=== PATIENT | female | born 1995 | race Caucasian/White ===

== ENCOUNTER 2016-08-01 11:37 | Emergency (ER) | payer SELFPAY ==
[2016-08-01 13:02] LABS: ABSOLUTE LYMPHOCYTES (AUTO) 2.4 10^3/uL (0.5-4.7); ABSOLUTE MONOCYTES (AUTO) 0.6 10^3/uL (0.1-1.4); ABSOLUTE NEUT (AUTO) 6.4 10^3/uL (1.7-8.2); BASOPHILS % (AUTO) 0.1 % (0-2); EOSINOPHILS % (AUTO) 0.1 % (0-6); HEMATOCRIT 37.6 % (36.0-47.0); HGB HCT DIFFERENCE 1.4; LYMPHOCYTES % (AUTO) 25.4 % (13-45); MEAN CORPUSCULAR HEMOGLOBIN 28.3 pg (27.0-33.4); MEAN CORPUSCULAR HGB CONC 34.6 g/dL (32.0-36.0); MEAN CORPUSCULAR VOLUME 82 fl (80-97); MONOCYTES % (AUTO) 6.1 % (3-13); RED BLOOD COUNT 4.59 10^6/uL (3.72-5.28); SEGMENTED NEUTROPHILS % (AUTO) 68.3 % (42-78); WHITE BLOOD COUNT 9.3 10^3/uL (4.0-10.5)
[2016-08-01 13:20] LABS: ALANINE AMINOTRANSFERASE 29 U/L (9-52); ALBUMIN 4.4 g/dL (3.5-5.0); ALCOHOL 80 mg/dL (NONE DETECTED); ALKALINE PHOSPHATASE 59 U/L (38-126); ANION GAP 12 (5-19); ASPARTATE AMINO TRANSFERASE 27 U/L (14-36); BILIRUBIN,TOTAL 0.5 mg/dL (0.2-1.3); BLOOD UREA NITROGEN 9 mg/dL (7-20); CALCIUM 9.2 mg/dL (8.4-10.2); CARBON DIOXIDE 27 mmol/L (22-30); CHLORIDE 106 mmol/L (98-107); CREATININE RESULT 0.81 mg/dL (0.52-1.25); GLUCOSE 90 mg/dL (75-110); SODIUM 144.5 mmol/L (137-145); TOTAL PROTEIN 7.2 g/dL (6.3-8.2)
[2016-08-01 13:23] LABS: APPEARANCE,URINE SLIGHTLY-CLOUDY; BILIRUBIN,URINE NEGATIVE (NEGATIVE); GLUCOSE, URINE NEGATIVE (NEGATIVE); KETONES,URINE NEGATIVE (NEGATIVE); LEUKOCYTE ESTERASE,URINE NEGATIVE (NEGATIVE); NITRITE,URINE NEGATIVE (NEGATIVE); PROTEIN,URINE 30 mg/dL (NEGATIVE); URINE SPECIFIC GRAVITY 1.019; UROBILINOGEN,URINE NEGATIVE mg/dL (<2.0)
--- NOTE | 2016-08-01 14:07 | ER Document Report ---
ED General - General TRAVEL OUTSIDE OF THE [place] IN LAST 30 DAYS: No - HPI Patient complains to provider of: suicidal ideation <LONNIE JONES - Last Filed: 08/01/16 14:04> <MARIAH KNOX - Last Filed: 08/01/16 16:37> - General Chief Complaint: Suicidal Ideation Stated Complaint: SUICIDAL IDEATION - HPI Notes: Patient coming in for suicidal ideation evaluation that has been ongoing for the last 48 hours. Patient states had a miscarriage one week ago states since that time has been depressed drinking more. Patient states that she has had thoughts about shooting herself with a gun. Patient states she does not have any access to weapons. Patient states she was trying to go and visit her ex- boyfriend or in [place]. Patient states that she did drink a little last night however prior to that last drink was 3 days ago. Denies ever going through any alcohol withdrawals. Patient also states no previous history of suicidal thoughts or psychiatric admissions. Denies any other medical problems denies any abdominal pain denies any vaginal bleeding at this time. (LONNIE JONES) - Related Data Allergies/Adverse Reactions: Penicillins Allergy (Verified 08/01/16 11:52) Home Medications: Current Home Medications No Home Medications 08/01/16 [History] Past Medical History - Social History Smoking Status: Current Every Day Smoker Chew tobacco use (# tins/day): No Frequency of alcohol use: Heavy Drug Abuse: None Family History: Reviewed & Not Pertinent Patient has suicidal ideation: Yes Patient has homicidal ideation: No Psychiatric Medical History: Reports: Hx Bipolar Disorder, Hx Depression Surgical Hx: Negative - Immunizations Hx Diphtheria, Pertussis, Tetanus Vaccination: Yes <LONNIE JONES - Last Filed: 08/01/16 14:04> Review of Systems - Review of Systems Constitutional: No symptoms reported EENT: No symptoms reported Cardiovascular: No symptoms reported Respiratory: No symptoms reported Gastrointestinal: No symptoms reported Genitourinary: No symptoms reported Female Genitourinary: No symptoms reported Musculoskeletal: No symptoms reported Skin: No symptoms reported Hematologic/Lymphatic: No symptoms reported Neurological/Psychological: Suicidal ideation -: Yes All other systems reviewed and negative <LONNIE JONES - Last Filed: 08/01/16 14:04> Physical Exam - Vital signs Interpretation: Normal - General General appearance: Appears well, Alert - HEENT Head: Normocephalic, Atraumatic Eyes: Normal Pupils: PERRL - Respiratory Respiratory status: No respiratory distress Chest status: Nontender Breath sounds: Normal Chest palpation: Normal - Cardiovascular Rhythm: Regular Heart sounds: Normal auscultation Murmur: No - Abdominal Inspection: Normal Distension: No distension Bowel sounds: Normal Tenderness: Nontender Organomegaly: No organomegaly - Back Back: Normal, Nontender - Extremities General upper extremity: Normal inspection, Nontender, Normal color, Normal ROM , Normal temperature General lower extremity: Normal inspection, Nontender, Normal color, Normal ROM , Normal temperature, Normal weight bearing. No: Yonas's sign - Neurological Neuro grossly intact: Yes Cognition: Normal Orientation: AAOx4 Yung Coma Scale Eye Opening: Spontaneous [place] Coma Scale Verbal: Oriented [place] Coma Scale Motor: Obeys Commands [place] Coma Scale Total: 15 Speech: Normal Motor strength normal: LUE, RUE, LLE, RLE Sensory: Normal - Psychological Associated symptoms: Depressed, Flat affect - Skin Skin Temperature: Warm Skin Moisture: Dry Skin Color: Normal <LONNIE JONES - Last Filed: 08/01/16 14:04> Course - Laboratory Result Diagrams: 08/01/16 12:45 08/01/16 12:45 <LONNIE JONES - Last Filed: 08/01/16 14:04> - Laboratory Result Diagrams: 08/01/16 12:45 08/01/16 12:45 <MARIAH KNOX - Last Filed: 08/01/16 16:37> - Re-evaluation Re-evalutation: 08/01/16 14:07 Patient's lab work shows no critical etiology. Patient will be referred to our mental health team for further evaluation. (LONNIE JONES) 08/01/16 16:35 Dr. Fairchild has cleared patient for follow-up as outpatient at [facility]. Her friend will drive her to the clinic today. Patient has contracted for safety and will return if she has any further thoughts of harming herself. (MARIAH KNOX) - Vital Signs Vital signs: Temp Pulse Resp BP Pulse Ox 98.9 F 116 H 16 136/86 H 97 08/01/16 11:48 08/01/16 11:48 08/01/16 11:48 08/01/16 11:48 08/01/16 11:48 (LONNIE JONES) (MARIAH KNOX) - Laboratory Laboratory results interpreted by me: 08/01/16 08/01/16 08/01/16 12:28 12:45 12:45 RDW 15.0 H Beta HCG, Quant Urine Protein 30 H Salicylates < 1.0 L Acetaminophen < 10 L 08/01/16 12:45 RDW Beta HCG, Quant 53.56 H Urine Protein Salicylates Acetaminophen (LONNIE JONES) (MARIAH KNOX) Discharge <LONNIE JONES - Last Filed: 08/01/16 14:04> <MARIAH KNOX - Last Filed: 08/01/16 16:37> - Discharge Clinical Impression: Suicidal ideation, Alcohol use Condition: Stable Disposition: HOME, SELF-CARE Additional Instructions: DEPRESSION: Your evaluation reveals that you have mental depression. While symptoms may be vague, they often include disturbance of sleep, fatigue, loss of appetite , and general loss of interest in life. While depression may be a side effect of drugs, or a reaction to a major change in your life, many cases have no known cause. If depression is acute, and related to a major loss in your life, you can expect it to clear completely with time. If you have been depressed a long time , are prone to repeated bouts of depression or low mood, or have been thinking of suicide, get help. Depression can be treated with anti-depressant medication and counselling. Long-term depression will often take a few weeks to clear, even with appropriate medication. Follow-up care is important. SUICIDAL IDEATION: Suicidal ideation is a common medical term for thoughts about suicide, which may be as detailed as a formulated plan, without the suicidal act itself. Although most people who undergo suicidal ideation do not commit suicide, some go on to make suicide attempts. The range of suicidal ideation varies greatly from fleeting to detailed planning, role playing, and unsuccessful attempts. While thoughts about suicide are common, most people do not carry out serious actions to commit suicide. Based upon your evaluation and discussion with you, we do not believe you are currently at risk to act upon your thoughts of suicide. You have agreed to return to the Emergency Department, at any time , if you feel inclined to act upon your suicidal thoughts. FOLLOW-UP CARE: If you have been referred to a physician for follow-up care, call the physician s office for an appointment as you were instructed or within the next two days. If you experience worsening or a significant change in your symptoms, notify the physician immediately or return to the Emergency Department at any time for re-evaluation.
--- NOTE | 2016-08-01 14:57 | PSYCHOLOGICAL NOTE ---
Psych Note - Psych Note Psych Note: Patient presented to [facility] ED for suicidal ideation evaluation that has been ongoing for the last 48 hours. Patient states had a miscarriage one week ago states since that time has been depressed drinking more. Patient states that she has had thoughts about shooting herself with a gun. Patient states she does not have any access to weapons. Patient states she was trying to go and visit her ex-boyfriend or in [place]. Patient states that she did drink a little last night however prior to that last drink was 3 days ago. Patient states that she was talking to her ex- when the licensing director showed up. She continued to need to state that she had been drinking and partying a lot in attempt to try to forget that she miscarried last week. She states that she was 13 weeks along with a little girl. She continued to state that she's been drinking and saying crazy things to a lot of people and getting them angry; "I told my fianc still love my ex-." She continued to disclose that her ex - was charged with family child abuse here in [place] and that her son lives with her parents who have legal guardianship. She states it is now civil matter because she is trying to get custody back. She continued to state that her relationship with her parents is not good. Patient discussed her drinking again saying"I said a lot of crazy things got kicked out of a republican last night." Patient states she needs to get away from [place] and go to [place] where her grandmother lives. She states her grandmother wants her to stay with her. Patient states that she did have suicidal ideation with a plan of shooting herself however she had no access to weapons. Patient states she's been diagnosed with anxiety depression and bipolar through [facility] however has not attended services for about a year. She states that she was prescribed medication however she never took them. Clinician spoke to patient's grandmother, Sonal [phone], she states that there is nothing she can do to help her her granddaughter. She states it's all starts with her parents because the patient has made some bad decisions. She continued to state the patient has trouble telling the truth and feels that she needs "i in depth counseling in a inpatient treatment facility." Sonal continued to state that the patient is sensible but doesn't make the right choices, destroys relationships,, and while she can obtain employment she is unable to stay employed. She states that she suffers from a lot of depression shown through withdrawal from others and cries a lot. Sonal believes that the patient is a danger to herself. She continued to state that she does not believe she could be a safety resource for her granddaughter because her is 80 years old and she is unsure should be able to devote all the time necessary. Sonal disclosed that she never said the patient could live with her, but she will always support her emotionally. Clinician attempted phone call to Moise durand [phone], no voicemail set up unable to leave message. Patient is alert and oriented to person place time and circumstance. Mood is euthymic with congruent affect. Patient states she has been suicidal for the last 48 hours and had a plan however she did not have access to a gun. Patient denies homicidal ideation. Patient denies auditory and visual hallucinations; no delusions are noted. Thought processes logical, disorganized and linear; however, it is noted that patient had difficulty with truthfulness. Conversational speech was within normal rate, tone, porosity. Eye contact was well maintained. Intellectual abilities appear to be within normal range. Attention and concentration are good. Insight, judgment, impulse control appear to be fair. Impression\\plan: Clinician notes patient was fluent in communicating in false information. Patient stated her grandmother wanted her to come and live with her in [place] however this was denied by the grandmother. Patient stated that she knew the sex of her child lost in miscarriage the week previous; however, it was noted she was only 13 weeks at the time of stated miscarriage. Patient also disclosed process of custody of her son being with her parents going through child protective services, this clinician has extended knowledge of child protective services and notes if the grandparents were given legal guardianship through DSS Court as stated by patient, there was extenuating circumstances that involved the patient not just her . At this time patient is disclosing heightened symptoms however plan included a gun where she had no means to obtain. It is noted the patient obtain services through cc and see approximately one year ago however failed to continue services and states she never took the medication prescribed to her. With these facts it is believed the patient is here for secondary gain; patient is psychiatrically cleared for discharge.
[2016-08-01 16:44] VITALS: BP 124/86
--- NOTE | 2016-08-02 08:25 | EKG REPORT ---
SEVERITY:- OTHERWISE NORMAL ECG - SINUS TACHYCARDIA : Confirmed by: Abida Childress 02-Aug-2016 08:24:44
[2016-08-04 14:29] LABS: URINE BARBITURATES SCREEN NEGATIVE; URINE METHADONE SCREEN NEGATIVE; URINE PHENCYCLIDINE SCREEN NEGATIVE
== END 2016-08-01 16:44 | disposition home or self-care (01) ==
LOC: ER 11:37
DX: R45.851 Suicidal ideations (principal); F32.9 Major depressive disorder, single episode, unspecified; Z72.89 Other problems related to lifestyle; F17.200 Nicotine dependence, unspecified, uncomplicated; Z88.0 Allergy status to penicillin
CPT/HCPCS: 36415; 80053; 80307; 81001; 84702; 85025; 93005; 93010; 99285

== ENCOUNTER 2016-10-29 07:52 | Emergency (ER) | payer SELFPAY ==
[2016-10-29] MEDS ORDERED: ACETAMINOPHEN 325 MG TABLET PO ONE (09:22)
[2016-10-29 10:14] LABS: ABSOLUTE LYMPHOCYTES (AUTO) 1.3 10^3/uL (0.5-4.7); ABSOLUTE MONOCYTES (AUTO) 0.9 10^3/uL (0.1-1.4); ABSOLUTE NEUT (AUTO) 14.7 10^3/uL (1.7-8.2); BASOPHILS % (AUTO) 0.2 % (0-2); EOSINOPHILS % (AUTO) 0.1 % (0-6); HEMOGLOBIN 12.1 g/dL (12.0-15.5); HGB HCT DIFFERENCE 0.3; LYMPHOCYTES % (AUTO) 7.4 % (13-45); MEAN CORPUSCULAR HEMOGLOBIN 26.7 pg (27.0-33.4); MEAN CORPUSCULAR HGB CONC 33.5 g/dL (32.0-36.0); MEAN CORPUSCULAR VOLUME 80 fl (80-97); MONOCYTES % (AUTO) 5.5 % (3-13); RED BLOOD COUNT 4.52 10^6/uL (3.72-5.28); SEGMENTED NEUTROPHILS % (AUTO) 86.8 % (42-78)
[2016-10-29] MEDS ORDERED: NORMAL SALINE 1000 ML 1,000 ML IV ONE (10:25)
[2016-10-29 10:32] LABS: ALANINE AMINOTRANSFERASE 16 U/L (9-52); ALBUMIN 4.1 g/dL (3.5-5.0); ALKALINE PHOSPHATASE 79 U/L (38-126); ANION GAP 14 (5-19); ASPARTATE AMINO TRANSFERASE 15 U/L (14-36); BILIRUBIN,DIRECT 0.2 mg/dL (0.0-0.4); BILIRUBIN,TOTAL 0.7 mg/dL (0.2-1.3); BLOOD UREA NITROGEN 10 mg/dL (7-20); CALCIUM 9.5 mg/dL (8.4-10.2); CARBON DIOXIDE 22 mmol/L (22-30); CHLORIDE 101 mmol/L (98-107); CREATININE RESULT 0.76 mg/dL (0.52-1.25); GLUCOSE 88 mg/dL (75-110); LIPASE 50.2 U/L (23-300); POTASSIUM 4.1 mmol/L (3.6-5.0); SODIUM 137.3 mmol/L (137-145); TOTAL PROTEIN 7.4 g/dL (6.3-8.2)
[2016-10-29] MEDS ORDERED: METOCLOPRAMIDE HCL INJ/PF 10 MG/2 ML SDV IV ONE (10:49)
--- NOTE | 2016-10-29 10:49 | ER Document Report ---
ED General - General Chief Complaint: Flu Symptoms Stated Complaint: ABDOMINAL PAIN Mode of Arrival: Ambulatory Information source: Patient Notes: 20-year-old female who noted that she was 2 weeks ago presents with complaints of suprapubic pain with vaginal bleeding. Patient denies any fevers or chills admits to nausea TRAVEL OUTSIDE OF THE [place] IN LAST 30 DAYS: No - HPI Onset: Just prior to arrival Onset/Duration: Sudden Quality of pain: Sharp Severity: Moderate Pain Level: 2 Associated symptoms: Other Exacerbated by: Denies Relieved by: Denies Similar symptoms previously: No Recently seen / treated by doctor: No - Related Data Allergies/Adverse Reactions: Penicillins Allergy (Verified 10/29/16 08:10) Past Medical History - Social History Smoking Status: Never Smoker Cigarette use (# per day): No Chew tobacco use (# tins/day): No Smoking Education Provided: No Frequency of alcohol use: None Drug Abuse: None Family History: Reviewed & Not Pertinent Patient has suicidal ideation: No Patient has homicidal ideation: No Renal/ Medical History: Denies: Hx Peritoneal Dialysis Psychiatric Medical History: Reports: Hx Bipolar Disorder, Hx Depression - Immunizations Hx Diphtheria, Pertussis, Tetanus Vaccination: Yes Review of Systems - Review of Systems Notes: REVIEW OF SYSTEMS: CONSTITUTIONAL : Denies fever, chills, or sweats. Denies recent illness. EENT: Denies eye, ear, throat, or mouth pain or symptoms. Denies nasal or sinus congestion or discharge. Denies throat, tongue, or mouth swelling or difficulty swallowing. CARDIOVASCULAR: Denies chest pain. Denies palpitations or racing or irregular heart beat. Denies ankle edema. RESPIRATORY: Denies cough, cold, or chest congestion. Denies shortness of breath, difficulty breathing, or wheezing. GASTROINTESTINAL: Denies abdominal pain or distention. Denies nausea, vomiting , or diarrhea. Denies blood in vomitus, stools, or per rectum. Denies black, tarry stools. Denies constipation. GENITOURINARY: Denies difficulty urinating, painful urination, burning, frequency, blood in urine, or discharge. FEMALE GENITOURINARY: Admits to vaginal bleeding pelvic pain MUSCULOSKELETAL: Denies back or neck pain or stiffness. Denies joint pain or swelling. SKIN: Denies rash, lesions or sores. HEMATOLOGIC : Denies easy bruising or bleeding. LYMPHATIC: Denies swollen, enlarged glands. NEUROLOGICAL: Denies confusion or altered mental status. Denies passing out or loss of consciousness. Denies dizziness or lightheadedness. Denies headache. Denies weakness or paralysis or loss of use of either side. Denies problems with gait or speech. Denies sensory loss, numbness, or tingling. Denies seizures. PSYCHIATRIC: Denies anxiety or stress. Denies depression, suicidal ideation, or homicidal ideation. ALL OTHER SYSTEMS REVIEWED AND NEGATIVE. Dictation was performed using [employer] voice recognition software PHYSICAL EXAMINATION: GENERAL: Well-appearing, well-nourished and in no acute distress. HEAD: Atraumatic, normocephalic. EYES: Pupils equal round and reactive to light, extraocular movements intact, conjunctiva are normal. ENT: Nares patent, oropharynx clear without exudates. Moist mucous membranes. NECK: Normal range of motion, supple without lymphadenopathy LUNGS: Breath sounds clear to auscultation bilaterally and equal. No wheezes rales or rhonchi. HEART: Regular rate and rhythm without murmurs ABDOMEN: Soft, nontender, nondistended abdomen. No guarding, no rebound. No masses appreciated. Female : deferred Musculoskeletal: Normal range of motion, no pitting or edema. No cyanosis. NEUROLOGICAL: Cranial nerves grossly intact. Normal speech, normal gait. Normal sensory, motor exams PSYCH: Normal mood, normal affect. SKIN: Warm, Dry, normal turgor, no rashes or lesions noted. Physical Exam - Vital signs Vitals: Temp Pulse Resp BP Pulse Ox 98.9 F 114 H 19 126/63 H 100 10/29/16 08:10 10/29/16 08:10 10/29/16 08:10 10/29/16 08:10 10/29/16 08:10 Course - Re-evaluation Re-evalutation: 10/29/16 10:52 Patient emergently order lab work, I'm concerned about ectopic 10/29/16 11:45 HCG is 28,000 US noted ot IUP or EUP 10/29/16 12:[address] Grant, she evaluated images, believes that it is a miscarriage. My concerns for ectopic . She offered the patient admission versus follow-up in the office, patient would rather follow up in the office. Given that she is stable at this time I will discharge her with understanding that she return immediately if there any other concerns After performing a Medical Screening Examination, I estimate there is LOW risk for ACUTE APPENDICITIS, BOWEL OBSTRUCTION, ACUTE CHOLECYSTITIS, PERFORATED DIVERTICULITIS, INCARCERATED HERNIA, PANCREATITIS, PELVIC INFLAMMATORY DISEASE, PERFORATED ULCER, ECTOPIC , or TUBO-OVARIAN ABSCESS, thus I consider the discharge disposition reasonable. Also, there is no evidence or peritonitis , sepsis, or toxicity. The patient and I have discussed the diagnosis and risks , and we agree with discharging home with close follow-up with the understanding that symptoms and presentations can change. We also discussed returning to the Emergency Department immediately if new or worsening symptoms occur. We have discussed the symptoms which are most concerning (e.g., bloody stool, fever, changing or worsening pain, vomiting) that necessitate immediate return. - Vital Signs Vital signs: Temp Pulse Resp BP Pulse Ox 98.9 F 114 H 19 126/63 H 100 10/29/16 08:10 10/29/16 08:10 10/29/16 08:10 10/29/16 08:10 10/29/16 08:10 - Laboratory Result Diagrams: 10/29/16 09:54 10/29/16 09:54 Laboratory results interpreted by me: 10/29/16 10/29/16 09:54 09:54 WBC 17.0 H MCH 26.7 L RDW 15.0 H Seg Neutrophils % 86.8 H Lymphocytes % 7.4 L Absolute Neutrophils 14.7 H Beta HCG, Quant 71048.00 H - Diagnostic Test Radiology reviewed: Image reviewed, Reports reviewed Discharge - Discharge Clinical Impression: Miscarriage Abdominal pain Qualifiers: Abdominal location: lower abdomen, unspecified Qualified Code(s): R10.30 - Lower abdominal pain, unspecified Condition: Stable Disposition: HOME, SELF-CARE Additional Instructions: Miscarriage You have had a miscarriage (medically called a "spontaneous "). The miscarriage occurred because the fetus did not develop normally. There is nothing you did to cause it, and nothing you could have done to prevent it. About one in four ends in miscarriage. You should rest in bed for two or three days. As there is some risk of infection of the uterus, you should not have intercourse for one week (or until okayed by your physician). You might not have a period for six to eight weeks. You should not become again for at least three months -- the uterus requires time to get back to normal. Call the doctor or return for re-examination if there is heavy or persistent vaginal bleeding, fever, foul discharge, continued cramping pains, or abdominal pain. You must return immediately if there are any other concerns Prescriptions: Oxycodone HCl/Acetaminophen [Percocet 5-325 mg Tablet] 1 - 2 tab PO Q4H PRN #15 tablet PRN Reason: Referrals: ANDREINA YANG MD [ACTIVE STAFF] - 11/02/16
[2016-10-29] MEDS ORDERED: MORPHINE SULFATE 10 MG/ML INJ IV ONE (12:16)
[2016-10-29 13:05] VITALS: BP 105/64
== END 2016-10-29 13:18 | disposition home or self-care (01) ==
LOC: ER 07:52
DX: O03.9 Complete or unspecified spontaneous abortion without complication (principal); Z88.0 Allergy status to penicillin
CPT/HCPCS: 99284; 96374; 36415; 84702; 83690; 85025; 80053; 76817; J2765; J7030

== ENCOUNTER 2017-08-19 02:56 | Emergency (ER) | payer OTHER ==
[2017-08-19] MEDS ORDERED: KETOROLAC TROMETHAMINE INJ/PF 30 MG/1 ML SDV IV ONE (04:57)
[2017-08-19] MEDS ORDERED: NORMAL SALINE 1000 ML 1,000 ML IV ONE ×2 (04:57→06:59)
[2017-08-19] MEDS ORDERED: ONDANSETRON HCL INJ/PF 4 MG/2 ML SDV IV ONE (04:57)
--- NOTE | 2017-08-19 04:59 | ER Document Report ---
ED General - General Chief Complaint: Arm Pain Stated Complaint: VOMITING Time Seen by Provider: 08/19/17 04:28 Notes: Patient is a 21-year-old female who comes emergency department for chief complaint of 2 days of diarrhea, she states she has developed body aches in her arms and legs, she has generalized abdominal pain. She vomited twice over the past couple of days. She denies hematochezia, recent antibiotics, recent travel , raw food, or any obvious source. She denies dysuria, flank pain, vaginal bleeding or discharge. She states she is not but she does have irregular cycles. She denies any daily medications. She denies any surgeries. TRAVEL OUTSIDE OF THE [place] IN LAST 30 DAYS: No - Related Data Allergies/Adverse Reactions: Penicillins Allergy (Verified 10/29/16 08:10) Past Medical History - General Information source: Patient - Social History Smoking Status: Never Smoker Frequency of alcohol use: None Drug Abuse: None Lives with: Family Family History: Reviewed & Not Pertinent Renal/ Medical History: Denies: Hx Peritoneal Dialysis Psychiatric Medical History: Reports: Hx Bipolar Disorder, Hx Depression Surgical Hx: Negative - Immunizations Hx Diphtheria, Pertussis, Tetanus Vaccination: Yes Review of Systems - Review of Systems Constitutional: See HPI EENT: No symptoms reported Cardiovascular: No symptoms reported Respiratory: No symptoms reported Gastrointestinal: See HPI Genitourinary: No symptoms reported Female Genitourinary: No symptoms reported Musculoskeletal: See HPI Skin: No symptoms reported Hematologic/Lymphatic: No symptoms reported Neurological/Psychological: No symptoms reported Physical Exam - Vital signs Vitals: Temp Pulse BP Pulse Ox 98.6 F 93 113/79 100 08/19/17 03:02 08/19/17 03:02 08/19/17 03:02 08/19/17 03:02 Interpretation: Normal - General General appearance: Appears well, Alert In distress: None - HEENT Head: Normocephalic, Atraumatic Eyes: Normal Conjunctiva: Normal Extraocular movements intact: Yes Eyelashes: Normal Pupils: PERRL Mucous membranes: Dry Pharynx: Normal Neck: Normal - Respiratory Respiratory status: No respiratory distress Chest status: Nontender Breath sounds: Normal Chest palpation: Normal - Cardiovascular Rhythm: Regular. No: Tachycardia Heart sounds: Normal auscultation, S1 appreciated, S2 appreciated Murmur: No - Abdominal Inspection: Normal Distension: No distension Bowel sounds: Normal Tenderness: Nontender - Completely nontender abdomen. No: Tender, Guarding Organomegaly: No organomegaly - Back Back: Normal, Nontender. No: Tender, CVA tenderness - Extremities General upper extremity: Normal inspection, Nontender, Normal ROM, Normal strength General lower extremity: Normal inspection, Nontender, Normal ROM, Normal strength - Neurological Neuro grossly intact: Yes Cognition: Normal Orientation: AAOx4 Yung Coma Scale Eye Opening: Spontaneous Yung Coma Scale Verbal: Oriented Yung Coma Scale Motor: Obeys Commands Yung Coma Scale Total: 15 Speech: Normal Motor strength normal: LUE, RUE, LLE, RLE Sensory: Normal - Psychological Associated symptoms: Normal affect, Normal mood - Skin Skin Temperature: Warm Skin Moisture: Dry Skin Color: Normal Course - Re-evaluation Re-evalutation: Patient with dry mucous membranes but otherwise she is well-appearing on exam. Soft abdomen. Vital signs unremarkable. CBC, chemistry generally unremarkable. Patient states her symptoms have resolved after Zofran, Toradol, IV fluids. Suspect dehydration causing extremity aches. Patient unable to provide stool sample, finally obtained urine, shows elevated specific gravity, 80 ketones, and surprisingly has a positive test. Patient states she is very surprised about this. Giving additional fluids because of obvious dehydration. Giving oral rehydration as well. Double checking with hCG quantitative. - Vital Signs Vital signs: Temp Pulse Resp BP Pulse Ox 97.9 F 65 18 105/60 100 08/19/17 09:01 08/19/17 09:01 08/19/17 09:01 08/19/17 09:01 08/19/17 09:01 - Laboratory Result Diagrams: 08/19/17 05:25 08/19/17 05:25 Laboratory results interpreted by me: 08/19/17 08/19/17 08/19/17 05:25 05:25 05:25 MCH 26.7 L RDW 17.8 H Sodium 136.6 L Beta HCG, Quant 117351.00 H Urine Ketones Urine Blood Urine HCG, Qual 08/19/17 05:55 MCH RDW Sodium Beta HCG, Quant Urine Ketones 80 H Urine Blood SMALL H Urine HCG, Qual POSITIVE H Discharge - Discharge Clinical Impression: Body aches, Nausea vomiting and diarrhea Condition: Stable Disposition: HOME, SELF-CARE Additional Instructions: Your test is positive. Please begin vitamins, follow-up closely with [facility] for additional evaluation and management. We have a stool culture growing in our lab, if anything concerning develops we will call you for treatment. Take Zofran if needed for nausea, drink plenty of fluids, you can take Tylenol for pain. Return for any concerning or worsening symptoms including uncontrolled vomiting , severe abdominal pain, or any other concerning symptoms. Prescriptions: Ondansetron [Zofran Odt 4 mg Tablet] 1 - 2 tab PO Q4H PRN #20 tab.rapdis PRN Reason: For Nausea/Vomiting
[2017-08-19 06:07] LABS: ABSOLUTE MONOCYTES (AUTO) 0.4 10^3/uL (0.1-1.4); ABSOLUTE NEUT (AUTO) 3.7 10^3/uL (1.7-8.2); BASOPHILS % (AUTO) 0.2 % (0-2); EOSINOPHILS % (AUTO) 0.3 % (0-6); HEMATOCRIT 37.3 % (36.0-47.0); HEMOGLOBIN 12.5 g/dL (12.0-15.5); MEAN CORPUSCULAR HEMOGLOBIN 26.7 pg (27.0-33.4); MEAN CORPUSCULAR HGB CONC 33.6 g/dL (32.0-36.0); MEAN CORPUSCULAR VOLUME 80 fl (80-97); MONOCYTES % (AUTO) 7.8 % (3-13); PLATELET COUNT 191 10^3/uL (150-450); RED BLOOD COUNT 4.68 10^6/uL (3.72-5.28); RED CELL DISTRIBUTION WIDTH 17.8 % (11.5-14.0); SEGMENTED NEUTROPHILS % (AUTO) 71.7 % (42-78); TOTAL CELLS COUNTED % (AUTO) 100 %; WHITE BLOOD COUNT 5.1 10^3/uL (4.0-10.5)
[2017-08-19 06:28] LABS: ALANINE AMINOTRANSFERASE 20 U/L (9-52); ALBUMIN 4.2 g/dL (3.5-5.0); ALKALINE PHOSPHATASE 45 U/L (38-126); ANION GAP 11 (5-19); ASPARTATE AMINO TRANSFERASE 22 U/L (14-36); BILIRUBIN,DIRECT 0.3 mg/dL (0.0-0.4); BILIRUBIN,TOTAL 0.3 mg/dL (0.2-1.3); BLOOD UREA NITROGEN 8 mg/dL (7-20); CALCIUM 9.4 mg/dL (8.4-10.2); CARBON DIOXIDE 23 mmol/L (22-30); CHLORIDE 103 mmol/L (98-107); GLUCOSE 88 mg/dL (75-110); POTASSIUM 3.9 mmol/L (3.6-5.0); SODIUM 136.6 mmol/L (137-145)
[2017-08-19 06:52] LABS: APPEARANCE,URINE SLIGHTLY-CLOUDY; BILIRUBIN,URINE NEGATIVE (NEGATIVE); COLOR,URINE YELLOW; GLUCOSE, URINE NEGATIVE (NEGATIVE); KETONES,URINE 80 mg/dL (NEGATIVE); LEUKOCYTE ESTERASE,URINE NEGATIVE (NEGATIVE); NITRITE,URINE NEGATIVE (NEGATIVE); PROTEIN,URINE NEGATIVE (NEGATIVE); UROBILINOGEN,URINE NEGATIVE mg/dL (<2.0)
[2017-08-19 09:04] VITALS: BP 105/60
== END 2017-08-19 09:05 | disposition home or self-care (01) ==
LOC: ER 02:56
DX: M79.1 Myalgia (principal); R11.2 Nausea with vomiting, unspecified; R19.7 Diarrhea, unspecified; M79.601 Pain in right arm; M79.602 Pain in left arm; M79.604 Pain in right leg; M79.605 Pain in left leg; R10.84 Generalized abdominal pain
CPT/HCPCS: 99283; 96361; 96374; 96375; 36415; 87045; 87205; 84702; 85025; 81025; 80053; 81001; J1885; J2405; J7030